=== PATIENT | male | born 1975 | race African-American/Black ===

== ENCOUNTER 2016-07-19 13:14 | Emergency (ER) | payer OTHER ==
[~2016-07-19] VITALS: Ht 182.9 cm; Wt 77.9 kg
[~2016-07-19 13:14] MED LIST: CATAPRES0.1 MG PO; CLONAZEPAM1 MG PO; KLONOPIN0.5 M1 PO; METOPROLOL SUCC50 MG PO; MOTRIN600 MG PO; NORCO 5/3251 TABLET PO
[2016-07-19 14:06] LABS: HEMATOCRIT 45.4 % (38.0-50.0); MCH 31.7 PG (29.0-34.0); MCHC 35.2 G/DL (30.0-36.0); MCV 89.9 FL (86-99); MEAN PLAT.VOLUME 10.4 uM^3 (9.0-12.4); PLATELET COUNT 198 K/uL (156-360); RBC DIS.WIDTH-CV 14.1 % (11.8-14.6); RED BLOOD COUNT 5.05 M/uL (4.00-5.50); WHITE BLOOD COUNT 13.3 K/uL (4.1-10.2)
[2016-07-19 14:15] LABS: CHLORIDE 104 mEq/L (99-109); POTASSIUM 5.4 mEq/L (3.7-5.4); SODIUM 135 mEq/L (136-147)
[2016-07-19 14:17] LABS: GLUCOSE 92 mg/dL (70-99)
[2016-07-19 14:18] LABS: ANION GAP 12 MEQ/L (2-14)
[2016-07-19 14:21] LABS: GFR ESTIMATE (CALCULATED) > 59 mL/min/
[2016-07-19 14:22] LABS: UREA NITROGEN (BUN) 15 mg/dL (9-23)
[2016-07-19] MEDS ORDERED: LISINOPRIL40 MG PO ×2 (14:42→14:58)
[2016-07-19] MEDS ORDERED: CLONIDINE HCL0.1 MG PO (14:58)
[2016-07-19] MEDS ORDERED: METOPROLOL SUCC50 MG PO (14:58)
[2016-07-19] MEDS ORDERED: KLONOPIN1 MG PO (14:58)
[2016-07-19 15:36] VITALS: BP 170/110
[2016-07-19] MEDS ORDERED: PEN-VEE K,VEET500 MG PO (15:40)
== END 2016-07-19 15:50 | disposition home or self-care (01) ==
LOC: EME 13:14 → RME 13:14
DX: Z76.0 Encounter for issue of repeat prescription (principal); I10 Essential (primary) hypertension; F41.9 Anxiety disorder, unspecified; F17.200 Nicotine dependence, unspecified, uncomplicated; Z88.5 Allergy status to narcotic agent
CPT/HCPCS: 80048; 81003; 85027; 99281; 99284

== ENCOUNTER 2016-07-28 12:40 | Emergency (ER) | payer SELFPAY ==
[~2016-07-28] VITALS: Ht 182.9 cm; Wt 78.3 kg
[~2016-07-28 12:40] MED LIST changes: +CLONIDINE HCL0.1 MG PO; +KLONOPIN1 MG PO; +LISINOPRIL40 MG PO; +PEN-VEE K,VEET500 MG PO
[2016-07-28] MEDS ORDERED: METOPROLOL SUCC50 MG PO (14:13)
[2016-07-28] MEDS ORDERED: CLONIDINE HCL0.1 MG PO (14:13)
[2016-07-28] MEDS ORDERED: KLONOPIN1 MG PO (14:13)
[2016-07-28] MEDS ORDERED: LISINOPRIL40 MG PO (14:13)
[2016-07-28 14:42] VITALS: BP 171/113
== END 2016-07-28 14:46 | disposition home or self-care (01) ==
LOC: EME 12:40
DX: I10 Essential (primary) hypertension (principal); F41.9 Anxiety disorder, unspecified; F17.200 Nicotine dependence, unspecified, uncomplicated; Z76.0 Encounter for issue of repeat prescription
CPT/HCPCS: 93005; 99281; 99284

== ENCOUNTER 2016-08-07 22:44 | Emergency (ER) | payer OTHER ==
[~2016-08-07] VITALS: Ht 182.9 cm; Wt 75.6 kg
[2016-08-07] MEDS ORDERED: LISINOPRIL40 MG PO (23:35)
[2016-08-07] MEDS ORDERED: METOPROLOL SUCC50 MG PO (23:35)
[2016-08-07] MEDS ORDERED: CLONIDINE HCL0.1 MG PO (23:35)
[2016-08-07] MEDS ORDERED: XANAX1 MG PO (23:35)
[2016-08-08 00:07] VITALS: BP 168/89
== END 2016-08-08 00:10 | disposition home or self-care (01) ==
LOC: EME 22:44 → EXP 22:44
DX: Z76.0 Encounter for issue of repeat prescription (principal); I10 Essential (primary) hypertension; F41.9 Anxiety disorder, unspecified
CPT/HCPCS: 99281; 99284

== ENCOUNTER 2016-08-22 08:28 | Emergency (ER) | payer SELFPAY ==
[~2016-08-22] VITALS: Ht 182.9 cm; Wt 79.3 kg
[~2016-08-22 08:28] MED LIST changes: +XANAX1 MG PO
[2016-08-22] MEDS ORDERED: XANAX1 MG PO (09:15)
[2016-08-22] MEDS ORDERED: CLONIDINE HCL0.1 MG PO (09:15)
[2016-08-22] MEDS ORDERED: ATARAX,VISTARIL25 MG PO (09:15)
[2016-08-22 09:31] VITALS: BP 148/84
== END 2016-08-22 09:32 | disposition home or self-care (01) ==
LOC: EME 08:28
DX: F41.9 Anxiety disorder, unspecified (principal); I10 Essential (primary) hypertension; Z76.0 Encounter for issue of repeat prescription; F17.200 Nicotine dependence, unspecified, uncomplicated
CPT/HCPCS: 99281; 99283

== ENCOUNTER 2016-08-30 13:07 | Emergency (ER) | payer SELFPAY ==
[~2016-08-30] VITALS: Ht 182.9 cm; Wt 78.5 kg
[~2016-08-30 13:07] MED LIST changes: +ATARAX,VISTARIL25 MG PO
[2016-08-30] MEDS ORDERED: KLONOPIN1 MG PO (16:00)
[2016-08-30] MEDS ORDERED: METOPROLOL SUCC50 MG PO (16:00)
[2016-08-30] MEDS ORDERED: CATAPRES0.1 MG PO (16:00)
[2016-08-30] MEDS ORDERED: LISINOPRIL40 MG PO (16:00)
[2016-08-30] MEDS ORDERED: CLONIDINE HCL0.1 MG PO (16:23)
[2016-08-30 16:34] VITALS: BP 152/96
== END 2016-08-30 16:38 | disposition home or self-care (01) ==
LOC: EME 13:07
DX: F41.1 Generalized anxiety disorder (principal); I10 Essential (primary) hypertension; Z76.0 Encounter for issue of repeat prescription
CPT/HCPCS: 71020; 99281; 99283

== ENCOUNTER 2016-09-13 12:54 | Emergency (ER) | payer SELFPAY ==
[~2016-09-13] VITALS: Ht 182.9 cm; Wt 79.8 kg
[2016-09-13] MEDS ORDERED: METOPROLOL SUCC50 MG PO (15:00)
[2016-09-13] MEDS ORDERED: LISINOPRIL40 MG PO (15:00)
[2016-09-13] MEDS ORDERED: CLONAZEPAM1 MG PO (15:00)
[2016-09-13] MEDS ORDERED: CLONIDINE HCL0.1 MG PO (15:21)
[2016-09-13 15:29] VITALS: BP 211/113
== END 2016-09-13 15:31 | disposition home or self-care (01) ==
LOC: EME 12:54 → RME 12:54
DX: Z76.0 Encounter for issue of repeat prescription (principal); I10 Essential (primary) hypertension; F41.9 Anxiety disorder, unspecified; Z88.5 Allergy status to narcotic agent; Z91.012 Allergy to eggs
CPT/HCPCS: 99281; 99284

== ENCOUNTER 2016-09-23 13:10 | Emergency (ER) | payer SELFPAY ==
[~2016-09-23] VITALS: Ht 182.9 cm; Wt 78.2 kg
[2016-09-23] MEDS ORDERED: KLONOPIN1 MG PO ×2 (15:11→17:10)
[2016-09-23] MEDS ORDERED: CLONIDINE HCL0.2 MG PO (17:10)
[2016-09-23 17:20] VITALS: BP 163/102
== END 2016-09-23 17:22 | disposition home or self-care (01) ==
LOC: EME 13:10
DX: I10 Essential (primary) hypertension (principal); Z76.0 Encounter for issue of repeat prescription; F41.9 Anxiety disorder, unspecified; R51 Headache
CPT/HCPCS: 70450; 99281; 99284

== ENCOUNTER 2016-10-06 12:48 | Emergency (ER) | payer SELFPAY ==
[~2016-10-06] VITALS: Ht 182.9 cm; Wt 78.7 kg
[~2016-10-06 12:48] MED LIST changes: +CLONIDINE HCL0.2 MG PO
[2016-10-06] MEDS ORDERED: LISINOPRIL40 MG PO (14:43)
[2016-10-06] MEDS ORDERED: CLONAZEPAM1 MG PO (14:43)
[2016-10-06] MEDS ORDERED: METOPROLOL TART50 MG PO (14:43)
[2016-10-06] MEDS ORDERED: CLONIDINE HCL0.1 MG PO (14:43)
[2016-10-06] MEDS ORDERED: VISTARIL50 MG PO (14:43)
[2016-10-06 15:01] VITALS: BP 156/109
== END 2016-10-06 15:02 | disposition home or self-care (01) ==
LOC: EME 12:48
DX: Z76.0 Encounter for issue of repeat prescription (principal); I10 Essential (primary) hypertension; Z86.59 Personal history of other mental and behavioral disorders; Z72.0 Tobacco use
CPT/HCPCS: 99281; 99284

== ENCOUNTER 2016-10-14 09:49 | Emergency (ER) | payer SELFPAY ==
[~2016-10-14] VITALS: Ht 182.9 cm; Wt 78.9 kg
[~2016-10-14 09:49] MED LIST changes: +METOPROLOL TART50 MG PO; +VISTARIL50 MG PO
[2016-10-14] MEDS ORDERED: METOPROLOL TART50 MG PO (11:15)
[2016-10-14] MEDS ORDERED: KLONOPIN1 MG PO (11:15)
[2016-10-14] MEDS ORDERED: CLONIDINE HCL0.1 MG PO (11:15)
[2016-10-14] MEDS ORDERED: ZESTRIL40 MG PO (11:15)
[2016-10-14 11:45] VITALS: BP 184/99
== END 2016-10-14 11:46 | disposition home or self-care (01) ==
LOC: EME 09:49
DX: Z76.0 Encounter for issue of repeat prescription (principal); I10 Essential (primary) hypertension; F41.9 Anxiety disorder, unspecified; Z72.0 Tobacco use
CPT/HCPCS: 99281; 99284

== ENCOUNTER 2016-10-25 12:57 | Emergency (ER) | payer SELFPAY ==
[~2016-10-25] VITALS: Ht 182.9 cm; Wt 86.5 kg
[~2016-10-25 12:57] MED LIST changes: +ZESTRIL40 MG PO
[2016-10-25 16:37] VITALS: BP 155/79
== END 2016-10-25 16:50 | disposition home or self-care (01) ==
LOC: EXP 12:57 → EME 12:57 → EXP 16:50
DX: Z76.0 Encounter for issue of repeat prescription (principal); I10 Essential (primary) hypertension; F41.9 Anxiety disorder, unspecified; F17.200 Nicotine dependence, unspecified, uncomplicated
CPT/HCPCS: 99281; 99284